=== PATIENT | male | born 1945 | race Caucasian/White ===

== ENCOUNTER → 2016-11-29 | Outpatient (CLI) | payer BC, OTHER ==
[~2016-11-29] MED LIST: ACIT1CAP PO; ATOR-26 PO; GEMF600T3 PO; GLIP10TA9 PO; LEVO100T PO; LIRA18IN SQ; METF1000 PO; MULTTAB58 PO; OLME40TA30 PO; OXYC1TAB3 PO; PRED1SUS3 OPL; SILD50TA PO
[2016-11-29 13:32] LABS: ESTIMATED AVERAGE GLUCOSE 183 mg/dl; HA1C FLAG Normal (Normal)
[2016-11-29 13:51] LABS: BLOOD UREA NITROGEN 35 mg/dl (7-18); BUN/CREATININE RATIO 20.6 (10-20); CALCIUM 9.4 mg/dl (8.5-10.1); CARBON DIOXIDE 25 mmol/L (21-32); CHLORIDE 107 mmol/L (98-107); GLUCOSE 153 mg/dl (70-99); POTASSIUM 4.1 mmol/L (3.5-5.1); SODIUM 142 mmol/L (136-145)
== END | disposition home or self-care (01) ==
LOC: C.LABBFT 08:43
PROVIDERS: ATTEND Internal Medicine
DX: Z11.59 Encounter for screening for other viral diseases (principal); E11.9 Type 2 diabetes mellitus without complications; N28.9 Disorder of kidney and ureter, unspecified

== ENCOUNTER 2016-12-25 14:10 | Emergency (ER) | payer BC, OTHER ==
[~2016-12-25] VITALS: Ht 177.8 cm; Wt 97.0 kg
[~2016-12-25 14:10] MED LIST changes: -ACIT1CAP PO; -OXYC1TAB3 PO
[2016-12-25 14:12] VITALS: TEMP 36.6; Ht 177.8 cm; Wt 97.0 kg
[2016-12-25] MEDS ORDERED: ACIT1CAP PO (15:08)
[2016-12-25] MEDS ORDERED: ONDANSETRON INJ 2 MG/ML 2 ML VIAL IV STA (15:13)
[2016-12-25] MEDS: FENTANYL CITRATE INJ 50 MCG/1 ML 2 ML VIAL IV PRN ×2 (15:47→18:24)
[2016-12-25 15:48] LABS: BASO % 0.3 %; BASO ABS # 0.02 K/uL (0-0.2); COMPLETE YES; EOS % 1.8 %; HEMATOCRIT 39.9 % (42-52); IG% 0.1 %; LYMPH % 34.3 %; LYMPH ABS # 2.73 K/uL (1.2-3.4); MEAN CELL VOLUME 91.5 fL (80-100); MEAN CORPUSCULAR HEMOGLOBIN 29.8 pg (25-34); MEAN CORPUSCULAR HGB CONC 32.6 g/dl (32-36); MEAN PLATELET VOLUME 8.9 fL (7.4-10.4); MONO % 6.7 %; NEUT % 56.8 %; PLATELET COUNT 254 K/uL (130-400); RED BLOOD COUNT 4.36 M/uL (4.7-6.1); WHITE BLOOD COUNT 7.95 K/uL (4.8-10.8)
[2016-12-25 16:05] LABS: BLOOD UREA NITROGEN 31 mg/dl (7-18); BUN/CREATININE RATIO 19.1 (10-20); CALCIUM 9.5 mg/dl (8.5-10.1); CARBON DIOXIDE 29 mmol/L (21-32); CHLORIDE 108 mmol/L (98-107); GLUCOSE 134 mg/dl (70-99); POTASSIUM 4.1 mmol/L (3.5-5.1); SODIUM 145 mmol/L (136-145)
[2016-12-25 16:07] LABS: C-REACTIVE PROTEIN < 0.29 mg/dl (0-0.29)
--- NOTE | 2016-12-25 16:38 | DIAGNOSTIC IMAGING REPORT ---
CT OF THE CERVICAL SPINE WITHOUT CONTRAST CLINICAL HISTORY: Severe neck pain, left greater than right. COMPARISON STUDY: No previous studies for comparison. TECHNIQUE: Helical axial images of the cervical spine were obtained without IV contrast. Sagittal and coronal reconstructions were viewed. FINDINGS: Alignment of the cervical spine is anatomic. Vertebral body heights are maintained. No acute fracture or suspicious lesion is present. Paravertebral soft tissues are unremarkable. Central canal and neural foramen are suboptimally assessed by CT. Mild to moderate multilevel degenerative disc disease and facet arthrosis is present. There is a small disc bulge with central disc protrusion at C3-C4. Note is made of a left paracentral disc protrusion at C5-C6. IMPRESSION: 1. No acute cervical spine fracture or subluxation. 2. Ogkb-om-yzonteti multilevel degenerative disc disease and facet arthrosis of the cervical spine. Electronically signed by: Judah Holm M.D. 12/25/2016 4:37 PM Dictated Date/Time: 12/25/2016 4:32 PM
[2016-12-25] MEDS ORDERED: KETOROLAC TROMETHAMINE 30 MG/ML VIAL IV STA (20:01)
[2016-12-25] MEDS ORDERED: OXYCODONE HCL IR 5 MG TAB (IMMEDIATE RELEASE) PO STA (20:01)
[2016-12-25 20:14] VITALS: BP 114/75; PULSE 63; O2SAT 98
[2016-12-25] MEDS ORDERED: OXYCODONE IR HOME PACK PO ONE (20:15)
[2016-12-25] MEDS ORDERED: OXYC1TAB3 PO (20:43)
--- NOTE | 2016-12-25 23:18 | EMERGENCY ROOM VISIT NOTE ---
History Report prepared by Agustin: Anderson Pruitt Under the Supervision of: Dr. Sebas Peraza M.D. First contact with patient: 14:33 Chief Complaint: NECK PAIN Stated Complaint: NECK PAIN History of Present Illness The patient is a 71 year old male who presents to the Emergency Room with complaints of constant left sided neck pain and stiffness that the patient has been experiencing for the past week. The patient rates his pain as a 7/10 in severity, and notes that it is significantly worsened with range of motion of the neck. He has tried Ibuprofen for his pain without relief. He also notes some associated tinging down the back of the right leg since his neck pain began. He has also been slightly nauseous. He has had bacterial meningitis in the past, which presented with similar neck stiffness, but he notes that he also had a headache, fever, dizziness during that episode. He does not have any of these additional symptoms at this time. 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 He also has a history of hyperlipidemia, hypothyroidism, hypertension, and diabetes. He denies trauma, LOC, chills, diaphoresis, visual changes, chest pain, breathing difficulties, vomiting, abdominal pain, back pain, melena, hematochezia, urinary symptoms, numbness, weakness, lymphadenopathy, rash, or other complaints. 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 A total of ten systems were reviewed and were otherwise negative. Past Medical & Surgical Medical Problems: (1) Bacterial meningitis (2) Diabetes (3) Fracture, talus (4) Hypercholesteremia (5) Hypertension (6) Hypothyroid Family History No pertinent family history secondary to age. Social History Smoking Status: Current Some Day Smoker Drug Use: none Marital Status: Housing Status: lives with significant other Occupation Status: employed Current/Historical Medications Scheduled Acitretin (Acitretin), 10 MG PO QAM Atorvastatin (Lipitor), 80 MG PO HS Gemfibrozil (Lopid), 600 MG PO BID Glipizide (Glucotrol), 10 MG PO BID Levothyroxine Sodium (Synthroid), 100 MCG PO QAM Liraglutide (Victoza), 0.6 MCG SQ QPM Metformin Hcl (Glucophage), 1,000 MG PO BID Multiple Vitamin (Multivitamin), 1 TAB PO QAM Olmesartan/Hctz (Benicar Hct 40/12.5), 1 TAB PO QAM Sildenafil Citrate (Viagra), 50 MG PO PRN Scheduled PRN Oxycodone Ir (Roxicodone Ir), 1-2 TAB PO Q4H PRN for Pain Allergies Coded Allergies: Penicillins (Verified Allergy, Unknown, THROAT SWELLING, 12/25/16) Physical Exam Vital Signs Date Time Temp Pulse Resp B/P Pulse Ox O2 Delivery O2 Flow Rate FiO2 12/25/16 20:14 63 18 114/75 98 Room Air 12/25/16 19:55 63 12/25/16 18:52 64 18 98/57 95 Room Air 12/25/16 17:00 70 16 130/74 95 Room Air 12/25/16 16:40 67 12/25/16 16:22 60 16 107/52 96 Room Air 12/25/16 14:12 36.6 74 18 123/78 100 Room Air Physical Exam GENERAL: Awake, alert, well-appearing, in no distress HENT: Normocephalic, atraumatic. Oropharynx unremarkable. EYES: Normal conjunctiva. Sclera non-icteric. NECK: There is pain with range of motion of neck. Range of motion is limited. Supple. No nuchal rigidity. FROM. No JVD. RESPIRATORY: Clear to auscultation. CARDIAC: Regular rate, normal rhythm. Extremities warm and well perfused. Pulses equal. ABDOMEN: Soft, non-distended. No tenderness to palpation. No rebound or guarding. No masses. RECTAL: Deferred. MUSCULOSKELETAL: Chest examination reveals no tenderness. The back is symmetrical on inspection without obvious abnormality. There is no CVA tenderness to palpation. No joint edema. LOWER EXTREMITIES: Calves are equal size bilaterally and non-tender. No edema. No discoloration. NEURO: Normal sensorium. No sensory or motor deficits noted. SKIN: No rash or jaundice noted. Medical Decision & Procedures ER Provider Diagnostic Interpretation: Radiology results as stated below per my review and radiologist interpretation: CT OF THE CERVICAL SPINE WITHOUT CONTRAST CLINICAL HISTORY: Severe neck pain, left greater than right. COMPARISON STUDY: No previous studies for comparison. TECHNIQUE: Helical axial images of the cervical spine were obtained without IV contrast. Sagittal and coronal reconstructions were viewed. FINDINGS: Alignment of the cervical spine is anatomic. Vertebral body heights are maintained. No acute fracture or suspicious lesion is present. Paravertebral soft tissues are unremarkable. Central canal and neural foramen are suboptimally assessed by CT. Mild to moderate multilevel degenerative disc disease and facet arthrosis is present. There is a small disc bulge with central disc protrusion at C3-C4. Note is made of a left paracentral disc protrusion at C5-C6. IMPRESSION: 1. No acute cervical spine fracture or subluxation. 2. Iyiq-qc-udllftdl multilevel degenerative disc disease and facet arthrosis of the cervical spine. Electronically signed by: Judah Holm M.D. 12/25/2016 4:37 PM Dictated Date/Time: 12/25/2016 4:32 PM Laboratory Results 12/25/16 15:38 Red Blood Count 4.36, Mean Corpuscular Volume 91.5, Mean Corpuscular Hemoglobin 29.8, Mean Corpuscular Hemoglobin Concent 32.6, Mean Platelet Volume 8.9, Neutrophils (%) (Auto) 56.8, Lymphocytes (%) (Auto) 34.3, Monocytes (%) (Auto) 6.7, Eosinophils (%) (Auto) 1.8, Basophils (%) (Auto) 0.3, Neutrophils # (Auto) 4.52, Lymphocytes # (Auto) 2.73, Monocytes # (Auto) 0.53, Eosinophils # (Auto) 0.14, Basophils # (Auto) 0.02 12/25/16 15:38 Test 12/25/16 15:38 12/25/16 20:24 White Blood Count 7.95 K/uL (4.8-10.8) Red Blood Count 4.36 M/uL (4.7-6.1) Hemoglobin 13.0 g/dL (14.0-18.0) Hematocrit 39.9 % (42-52) Mean Corpuscular Volume 91.5 fL (80-100) Mean Corpuscular Hemoglobin 29.8 pg (25-34) Mean Corpuscular Hemoglobin Concent 32.6 g/dl (32-36) Platelet Count 254 K/uL (130-400) Mean Platelet Volume 8.9 fL (7.4-10.4) Neutrophils (%) (Auto) 56.8 % Lymphocytes (%) (Auto) 34.3 % Monocytes (%) (Auto) 6.7 % Eosinophils (%) (Auto) 1.8 % Basophils (%) (Auto) 0.3 % Neutrophils # (Auto) 4.52 K/uL (1.4-6.5) Lymphocytes # (Auto) 2.73 K/uL (1.2-3.4) Monocytes # (Auto) 0.53 K/uL (0.11-0.59) Eosinophils # (Auto) 0.14 K/uL (0-0.5) Basophils # (Auto) 0.02 K/uL (0-0.2) RDW Standard Deviation 42.6 fL (36.4-46.3) RDW Coefficient of Variation 12.8 % (11.5-14.5) Immature Granulocyte % (Auto) 0.1 % Immature Granulocyte # (Auto) 0.01 K/uL (0.00-0.02) Erythrocyte Sedimentation Rate 15 mm/hr (0-14) Anion Gap 8.0 mmol/L (3-11) Est Creatinine Clear Calc Drug Dose 48.8 ml/min Estimated GFR () 49.2 Estimated GFR (Non- 42.4 BUN/Creatinine Ratio 19.1 (10-20) Calcium Level 9.5 mg/dl (8.5-10.1) C-Reactive Protein < 0.29 mg/dl (0-0.29) Bedside Glucose 80 mg/dl (70-99) Laboratory results reviewed by me Medications Administered Medications (Trade) Dose Ordered Sig/Alyson Route Start Time Stop Time Status Last Admin Dose Admin Fentanyl Citrate (Fentanyl Inj) 50 mcg Q15M PRN IV 12/25/16 15:15 12/25/16 21:07 DC 12/25/16 18:24 50 MCG Ondansetron HCl (Zofran Inj) 4 mg NOW STAT IV 12/25/16 15:13 12/25/16 15:14 DC 12/25/16 15:46 4 MG Ketorolac Tromethamine (Toradol Inj) 15 mg NOW STAT IV 12/25/16 20:01 12/25/16 20:04 DC 12/25/16 20:10 15 MG Oxycodone HCl (Roxicodone Immediate Rel Tab) 5 mg NOW STAT PO 12/25/16 20:01 12/25/16 20:04 DC 12/25/16 20:11 5 MG Oxycodone HCl (Roxicodone Immediate Rel 5MG Home Pack) 1 homepack UD ONCE PO 12/25/16 20:15 12/25/16 20:16 DC 12/25/16 20:11 1 HOMEPACK ECG Indication: other (neck pain ) Rate (beats per minute): 68 Rhythm: sinus rhythm Findings: PVC, no acute ischemic change ED Course 1459: The patient was evaluated in room B11. A complete history and physical exam was performed. 1513: Ordered Zofran 4 mg IV. 1515: Ordered Fentanyl 50 mcg IV. 1551: I checked on the patient at this time, he is going good. 1644: I discussed the case with Dr. Holm at this time, he would like to confirm with the [facility] that the patient's bran clip is MRI compatible. 1656: I discussed the case with Dr. Rothman at this time. He tried to located electronic records. The [facility] electronic EMR does not contain any documentation on the status of the patient's brain clip. 2001: Ordered Oxycodone HCl 5 mg PO, Toradol 15 mg IV. 2006: The patient's blood sugar was 59 at this time. He was not feeling well when I spoke to him. 2015: Ordered Oxycodone 1 homepack PO. 2027: I discussed the case with Dr. Bay - Orthopedics at this time, he will see the patient in his office tomorrow. 2037: I reevaluated the patient. Discussed results and discharge instructions: he verbalized understanding and agreement. The patient is ready for discharge. 2121: We have obtained records from at this time. The records show that the patient had a Yasargil Clip placed. This clip should be made of Titanium, but it cannot be certain. Case management will touch base with Neurosurgery at [facility] tomorrow to make sure this clip is made of Titanium. Medical Decision Triage Nursing notes reviewed. The patient's presentation and history were concerning for neck pain. Etiologies such as musculoskeletal, herniated disc, epidural abscess, osteomyelitis, fracture, aortic disease, metastatic disease, infection, meningitis, dissection, as well as others were entertained. The patient was evaluated. Clinically he was doing well but his pain was easily reproducible with any neck movement. He did not have a headache or fever. This does not seem to be consistent with a meningitis or similar infectious etiology. The patient was reluctant to take pain medication but agreed to help assist the workup. He was given Zofran and fentanyl. He received a second dose of fentanyl. This did make him feel better. The patient had an unremarkable CBC except for mild anemia. His ESR and CRP were unremarkable. ECG was unremarkable. Chemistry panel was unremarkable as well. The patient was minimally hyperglycemic. A CT scan was performed and this did show some cervical disc disease. There is no metastatic disease or gross bony abnormality. I would have liked to get an MRI on the patient however there was some question about the MRI compatibility of his surgical clip. The patient was kept in the emergency department for an extended period while I attempted to get records from [facility]. Given the date of his surgery the records were on their microfiche. The patient was doing relatively well but then began to feel generally uncomfortable. He had his blood glucose checked and it was 59. He was given juice and food. It was rechecked and he was doing much better. The patient states he did not eat all day and frequently skips lunch. I did give the patient a soft cervical collar for support as well as an oral oxycodone. Prescription oxycodone was written. He has had this in the past and did well with it . The patient was discussed a dose of Toradol. This was given as well. He was doing better with this. Given the next etiologies I consulted with Dr. Bay of orthopedic spine. He has an opening tomorrow morning in the office and asked for me to have the patient come in to be seen. The patient and were in agreement. If patient develops headache fever or any infectious like symptoms he will come back emergency Department immediately. I gave my usual and customary discussion regarding this issue. This seems to be most consistent with a cervical disc disease given the gradual onset over the last week. By the evaluation outlined above other emergent etiologies such as those listed in the differential, as well as others, were deemed relatively unlikely. The patient and or informed about the findings as listed above. All questions were answered and they were pleased with the treatment. Return instructions were outlined and the patient was discharged in stable condition. The patient was referred to orthopedic spine for follow-up tomorrow for a recheck of the current condition. After the patient was discharged his operative note from [facility] was obtained. This was from 1995. He had a Yargasil clip placed on his aneurysm. These clips are usually titanium and MRI compatible although it is difficult to say if it was in 1995. Case management is going to contact the [facility] in the morning and discuss this with the department of neurosurgery. Case management may need to contact the company to find out if this is MRI compatible. The patient will follow-up with or the spine in the morning or return to the Emergency Room if there are any issues. The chart was completed utilizing [employer] Speech voice recognition software. Grammatical errors, random word insertions, pronoun errors, and incomplete sentences are an occasional consequence of this system due to software limitations, ambient noise, and hardware issues. Any formal questions or concerns about the content, text, or information contained within the body of this dictation should be directly addressed to the physician for clarification. Consults Time Called: 1634 Consulting Physician: Dr. Holm Returned Call: 1643 I discussed the case with Dr. Holm at this time, he would like to confirm with the [facility] that the patient's bran clip is MRI compatible. Additional Consults: Time Called: 1649 Consulted Physician: Dr. Rothman - [facility] Returned Call: 1655 Additional Comments: I discussed the case with Dr. Rothman at this time. He tried to located electronic records. The [facility] electronic EMR does not contain any documentation on the status of the patient's brain clip. Time Called: 2019 Consulted Physician: Dr. Bay - Orthopedics Returned Call: 2027 Additional Comments: I discussed the case with Dr. Bay at this time, he will see the patient in his office tomorrow. Impression Primary Impression: Acute neck pain Additional Impression: Cervical disc disease Scribe Attestation The scribe's documentation has been prepared under my direction and personally reviewed by me in its entirety. I confirm that the note above accurately reflects all work, treatment, procedures, and medical decision making performed by me. Departure Information Dispostion Home / Self-Care Prescriptions Oxycodone Ir (Roxicodone Ir) 5 Mg Tab 1-2 TAB PO Q4H Y for Pain, #15 TAB Prov: Sebas Peraza MD 12/25/16 Referrals Goran Floyd M.D. (PCP) Forms HOME CARE DOCUMENTATION FORM, IMPORTANT VISIT INFORMATION, WORK / SCHOOL INSTRUCTIONS Patient Instructions [facility] Additional Instructions NECK PAIN INSTRUCTIONS: DO NOT drive, drink alcohol, operate machinery, or perform dangerous activities today. You were given medications in the ER that can affect your ability to safely function or operate a vehicle. Oxycodone (OxyIR) 5mg: Take 1-2 pills every four hours for breakthrough pain. Avoid alcohol, operating machinery or dangerous equipment, working on ladders or roofs, DRIVING, or situations where being under the influence may be dangerous. It is recommended to use an cveq-nkn-elsrjgu stool softener such as Colace, 100mg twice daily while taking this medication to avoid constipation. Ibuprofen(Motrin, Advil) may be used for fever or pain. Use 600mg every six hours as needed. Take with food. Avoid using more than 2400mg in a 24 hour period. Do not use 2400mg per day for more than three consecutive days without physician direction. Prolonged inappropriate use can lead to stomach upset or ulcers. This medication can be taken if you need to drive, work, or perform activities which may be dangerous when taking narcotic pain medication. (AND/OR) Acetaminophen(Tylenol) may be used for fever or pain. Use 1000mg every six hours as needed. Avoid using more than 4000mg in a 24 hour period. This medication can be taken if you need to drive, work, or perform activities which may be dangerous when taking narcotic pain medication. Rest and avoid heavy lifting until your symptoms resolve and then gradually return to full activity. A good rule of thumb is if it hurts your back to perform a certain activity, then it should be avoided until you are healthy again. A heating pad, warm compresses, or a hot shower may help with tight muscles and can be done several times a day as needed. Continue current medications. Soft collar for comfort. Return to the ER immediately for any numbness, tingling, severe pain, severe headache, fever, visual disturbances, loss of control of your bowels or bladder , inability to walk, or as needed. Follow-up with Dr. Bay at [facility] [place] tomorrow morning at 8:45. Tell the front office secretary he was made aware and wants you in the clinic tomorrow morning. Problem Qualifiers
== END 2016-12-25 20:49 | disposition home or self-care (01) ==
LOC: C.EDB 14:11
DX: M54.2 Cervicalgia (principal); M50.90 Cervical disc disorder, unspecified, unspecified cervical region; I10 Essential (primary) hypertension; E11.9 Type 2 diabetes mellitus without complications; E78.00 Pure hypercholesterolemia, unspecified; E03.9 Hypothyroidism, unspecified; F17.200 Nicotine dependence, unspecified, uncomplicated; Z87.81 Personal history of (healed) traumatic fracture; Z86.19 Personal history of other infectious and parasitic diseases; Z79.4 Long term (current) use of insulin; Z79.899 Other long term (current) drug therapy; Z88.0 Allergy status to penicillin

== ENCOUNTER → 2017-03-09 | Outpatient (CLI) | payer BC, OTHER ==
[~2017-03-09] MED LIST changes: +ACIT1CAP PO; +OXYC1TAB3 PO; -PRED1SUS3 OPL
[2017-03-09 12:42] LABS: BASO % 0.3 %; BASO ABS # 0.02 K/uL (0-0.2); COMPLETE YES; EOS % 2.7 %; HEMATOCRIT 41.3 % (42-52); IG% 0.1 %; LYMPH % 35.3 %; LYMPH ABS # 2.49 K/uL (1.2-3.4); MEAN CELL VOLUME 91.6 fL (80-100); MEAN CORPUSCULAR HEMOGLOBIN 29.9 pg (25-34); MEAN CORPUSCULAR HGB CONC 32.7 g/dl (32-36); MEAN PLATELET VOLUME 9.3 fL (7.4-10.4); MONO % 9.1 %; NEUT % 52.5 %; PLATELET COUNT 280 K/uL (130-400); RED BLOOD COUNT 4.51 M/uL (4.7-6.1); WHITE BLOOD COUNT 7.05 K/uL (4.8-10.8)
[2017-03-09 13:14] LABS: URINE APPEARANCE CLEAR (CLEAR); URINE BILIRUBIN NEG (NEG); URINE COLOR YELLOW; URINE NITRITE NEG (NEG); URINE PH 5.5 (4.5-7.5); URINE SPECIFIC GRAVITY 1.019 (1.000-1.030); UROBILINOGEN NEG (NEG)
[2017-03-09 13:15] LABS: ALT/SGPT 35 U/L (12-78); AST/SGOT 26 U/L (15-37); BLOOD UREA NITROGEN 26 mg/dl (7-18); BUN/CREATININE RATIO 16.4 (10-20); CALCIUM 9.7 mg/dl (8.5-10.1); CARBON DIOXIDE 28 mmol/L (21-32); CHLORIDE 105 mmol/L (98-107); GLUCOSE 149 mg/dl (70-99); POTASSIUM 4.3 mmol/L (3.5-5.1); SODIUM 142 mmol/L (136-145)
[2017-03-09 13:16] LABS: MANUAL MICROSCOPIC REQUIRED? NO; REVIEW REQ? NO
[2017-03-09 13:25] LABS: ESTIMATED AVERAGE GLUCOSE 163 mg/dl; HA1C FLAG Normal (Normal)
[2017-03-09 13:26] LABS: CHOLESTEROL 168 mg/dl (0-200); HDL CHOLESTEROL 42 mg/dl; LDL CHOLESTEROL CALCULATED 92 mg/dl; TRIGLYCERIDES 171 mg/dl (0-150); VERY LOW DENSITY LIPOPROT CALC 34 mg/dl
== END | disposition home or self-care (01) ==
LOC: C.LABBFT 09:06
PROVIDERS: ATTEND Internal Medicine
DX: E78.00 Pure hypercholesterolemia, unspecified (principal)

== ENCOUNTER → 2017-07-06 | Outpatient (CLI) | payer BC ==
[~2017-07-06] MED LIST changes: -OXYC1TAB3 PO
[2017-07-06 13:07] LABS: ESTIMATED AVERAGE GLUCOSE 180 mg/dl; HA1C FLAG Normal (Normal)
== END | disposition home or self-care (01) ==
LOC: C.LABBFT 09:30
PROVIDERS: ATTEND Internal Medicine
DX: L11.1 Transient acantholytic dermatosis [Grover] (principal)

== ENCOUNTER → 2017-10-13 | Outpatient (CLI) | payer BC ==
[2017-10-13 12:48] LABS: BASO % 0.3 %; BASO ABS # 0.02 K/uL (0-0.2); EOS % 2.4 %; EOS ABS # 0.17 K/uL (0-0.5); HEMATOCRIT 41.1 % (42-52); HEMOGLOBIN 13.5 g/dL (14.0-18.0); IG# 0.01 K/uL (0.00-0.02); LYMPH % 33.9 %; LYMPH ABS # 2.42 K/uL (1.2-3.4); MEAN CELL VOLUME 91.7 fL (80-100); MEAN CORPUSCULAR HEMOGLOBIN 30.1 pg (25-34); MEAN CORPUSCULAR HGB CONC 32.8 g/dl (32-36); MEAN PLATELET VOLUME 9.7 fL (7.4-10.4); MONO % 7.4 %; MONO ABS # 0.53 K/uL (0.11-0.59); NEUT % 55.9 %; NEUT ABS # 3.98 K/uL (1.4-6.5); PLATELET COUNT 290 K/uL (130-400); RED CELL DISTRIBUTION WIDTH CV 12.9 % (11.5-14.5); RED CELL DISTRIBUTION WIDTH SD 42.8 fL (36.4-46.3); WHITE BLOOD COUNT 7.13 K/uL (4.8-10.8)
[2017-10-13 13:03] LABS: ALT/SGPT 25 U/L (12-78); AST/SGOT 17 U/L (15-37); BLOOD UREA NITROGEN 26 mg/dl (7-18); CALCIUM 9.7 mg/dl (8.5-10.1); CARBON DIOXIDE 29 mmol/L (21-32); CHOLESTEROL 153 mg/dl (0-200); CREATININE 1.56 mg/dl (0.60-1.40); GLUCOSE 173 mg/dl (70-99); POTASSIUM 4.3 mmol/L (3.5-5.1); SODIUM 137 mmol/L (136-145)
[2017-10-13 13:13] LABS: LDL CHOLESTEROL CALCULATED 76 mg/dl
[2017-10-13 13:20] LABS: HEMOGLOBIN A1C 8.7 % (4.5-5.6)
== END | disposition home or self-care (01) ==
LOC: C.LABBFT 08:31
PROVIDERS: ATTEND Internal Medicine
DX: E11.9 Type 2 diabetes mellitus without complications (principal)